=== PATIENT | female | born 1955 | race Caucasian/White ===

== ENCOUNTER → 2017-02-25 | Outpatient (CLI) | payer SELFPAY ==
[~2017-02-25] MED LIST: ALENDRONATE SOD70 M1 PO; ATENOLOL25 MG PO; COMM1 XX; FEOSOL325 MG PO; GABAPENTIN300 MG PO; HYDROCODONE/APA1 TA8 PO; LEVOTHYROXIN0.125 MG PO; LISINOPRIL 10MG10 MG PO; NORCO 325 MG-51 TAB PO; SENNA PLUS 50 M1 TAB PO; WALK4 XX; XARELTO10 MG PO
--- NOTE | 2017-02-25 13:34 | RADIOLOGY REPORT PS360 ---
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 No dislocation however evident. No acute fracture. IMPRESSION: No change status post total left hip replacement as described above
== END ==
LOC: RAD 12:54
DX: Z47.89 Encounter for other orthopedic aftercare (principal)

== ENCOUNTER → 2017-04-09 | Outpatient (CLI) | payer SELFPAY ==
--- NOTE | 2017-04-09 14:55 | RADIOLOGY REPORT PS360 ---
KNEE-4 OR 5 VIEWS-RT HISTORY: OTHOPEDIC AFTERCARE, RT KNEE PAIN ORDERING PHYSICIAN: MALIA RAMIRES MD PATIENT AGE: 61 years COMPARISON: None FINDINGS: Weightbearing views are obtained. Osteoarthritic changes are present involving all 3 compartments most severe at patellofemoral joint. Moderate osteoarthritic changes involve the lateral compartment. There is mild lateral patellar subluxation. There are 2 small calcific densities projecting over the intercondylar region of the femur distally suggesting loose bodies. There are vascular calcifications. No lytic or blastic change. No acute fracture or dislocation. IMPRESSION: Osteoarthritis greatest at the patellofemoral joint with mild patellar subluxation laterally. Please see above for detail
--- NOTE | 2017-04-09 14:56 | RADIOLOGY REPORT PS360 ---
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 No dislocation however evident. There are 3 pins present within the right hip No acute fracture. IMPRESSION: No change status post total left hip replacement as described above
== END ==
LOC: RAD 13:01
DX: Z47.89 Encounter for other orthopedic aftercare (principal); M25.561 Pain in right knee